=== PATIENT | female | born 1975 | race American Indian/Alaskan Native ===

== ENCOUNTER 2017-01-17 08:26 | Emergency (ER) | payer MEDICAID ==
[2017-01-17 10:57] LABS: Bacteria,Urine 1+ /HPF (Negative); Mucus,Urine 3+ /HPF
[2017-01-17 11:00] LABS: Bilirubin,Urine Moderate (Negative); Ketones,Urine Trace mg/dL (Negative)
[2017-01-17 11:01] LABS: Blood,Urine Large (Negative)
[2017-01-17 11:02] LABS: Leukocyte Esterase,Urine Large (Negative); Nitrite,Urine Negative (Negative)
[2017-01-17 11:05] LABS: RBC,Urine > 182.0 /HPF (0.0-6.0)
[2017-01-17 11:36] VITALS: BP 140/96
--- NOTE | 2017-01-17 16:12 | Emergency Department Report ---
Entered by CLAUDIA SULTANA, acting as scribe for FAROOQ RODRIGUEZ PA. ED Female HPI - General Chief complaint: Urogenital-Female Stated complaint: BUMPS VAG AREA Time Seen by Provider: 01/17/17 10:11 Source: patient Mode of arrival: Ambulatory Limitations: No Limitations - History of Present Illness Initial comments: 41 year old female with no significant PMHx presents to ED with c/o lesions outside the vaginal area since 3 days ago. Patient reports she had dysuria and noticed lesions after urinating and describes pain as burning. She notes she had a new sexual partner and had unprotected sex with that partner. Patient denies similar symptoms, vaginal bleeding, vaginal discharge, fever, back pain, abd pain, chills, nausea, or vomiting. Patient used joan butter with no relief. Patient is currently on her menstrual period. NKDA. PAZ Complaint: other (lesions near vaginal area) -: days(s) (3) Severity: moderate Severity scale (0 -10): 4 Quality: burning Consistency: constant Improves with: none Worsens with: urination Are you Now?: No Associated Symptoms: denies other symptoms, dysuria. denies: vaginal discharge , vaginal bleeding, abdominal pain, nausea/vomiting, fever/chills, headaches, hematuria, rash, shortness of breath, weakness - Related Data Sexually active: Yes Previous Rx's Medication Instructions Recorded Last Taken Type Acyclovir [Zovirax] 1 applic TP BID #1 tube 01/17/17 Unknown Rx Sulfamethoxazole/Trimethoprim 1 each PO BID #12 tablet 01/17/17 Unknown Rx [Bactrim DS TAB] valACYclovir [Valtrex] 500 mg PO BID #30 tab 01/17/17 Unknown Rx Allergies Allergy/AdvReac Type Severity Reaction Status Date / Time No Known Allergies Allergy Verified 01/17/17 09:04 ED Review of Systems Comment: All other systems reviewed and negative Constitutional: denies: chills, fever, weakness Respiratory: denies: cough, shortness of breath, wheezing Cardiovascular: denies: chest pain, palpitations Gastrointestinal: denies: abdominal pain, nausea, vomiting, diarrhea Genitourinary: dysuria. denies: urgency, frequency, hematuria, discharge Musculoskeletal: denies: back pain, joint swelling, arthralgia Skin: lesions (outside vaginal area). denies: rash Neurological: denies: headache, weakness, paresthesias ED Past Medical Hx - Past Medical History Additional medical history: OBESITY - Surgical History Additional Surgical History: X 3 - Social History Smoking Status: Former Smoker Substance Use Type: None - Medications Home Medications: Home Medications Medication Instructions Recorded Confirmed Last Taken Type Acyclovir [Zovirax] 1 applic TP BID #1 tube 01/17/17 Unknown Rx Sulfamethoxazole/Trimethoprim 1 each PO BID #12 tablet 01/17/17 Unknown Rx [Bactrim DS TAB] valACYclovir [Valtrex] 500 mg PO BID #30 tab 01/17/17 Unknown Rx ED Physical Exam - General Limitations: No Limitations - Other Other exam information: GENERAL: Patient is alert and oriented x 3. No apparent distress, normal gait, atraumatic. HEAD: Head is normocephalic and atraumatic. ABDOMEN: Nontender to palpation on all quadrants. No organomegaly was noted. Positive bowel sounds. No CVA tenderness. BACK: normal inspection, full ROM. No CVA tenderness, no paraspinal tenderness, no vertebral tenderness LUNGS: Symmetrical with respiration, no wheezing, no rales, no crackles, CTAB HEART: Regular rate and rhythm with normal S1/S2 present. No murmurs, rubs, or gallops. SKIN: Warm and dry. No lesions, ulceration or induration present GENITOURINARY: 4 ulcerated lesions, on labia minora consistent with genital herpes outbreak. Lesions tender to touch ED Course Vital Signs 01/17/17 01/17/17 09:04 11:34 Temperature 98.1 F 98.4 F Pulse Rate 65 85 Respiratory 17 16 Rate Blood Pressure 136/85 Blood Pressure 140/96 [Left] O2 Sat by Pulse 100 100 Oximetry ED Medical Decision Making - Medical Decision Making 41 year old female presents to ED with genital herpes outbreak ED course: test and UA were ordered in ED. Urinalysis positive for bacteria and elevated white blood cell Vital signs stable patient is in no acute or respiratory distress. Discussed findings with patient about diagnosis. Discussed with patient to follow up with PCP as referred, and to return to the ED if symptoms return or worsen. Patient states understanding and will follow instructions. Pt verbally states understanding and will comply to follow up. ED Disposition Clinical Impression: Genital herpes Qualifiers: Herpes simplex infection site: vulvovaginitis Qualified Code(s): A60.04 - Herpesviral vulvovaginitis UTI (urinary tract infection) Qualifiers: Urinary tract infection type: acute cystitis Hematuria presence: with hematuria Qualified Code(s): N30.01 - Acute cystitis with hematuria Disposition: TO HOME OR SELFCARE Is pt being admited?: No Does the pt Need Aspirin: No Condition: Stable Instructions: Genital Herpes Simplex (ED), Urinary Tract Infection in Women (ED ), Sexually Transmitted Diseases in Adolescents (ED) Prescriptions: Acyclovir [Zovirax] 1 applic TP BID #1 tube Sulfamethoxazole/Trimethoprim [Bactrim DS TAB] 1 each PO BID #12 tablet valACYclovir [Valtrex] 500 mg PO BID #30 tab Referrals: PRIMARY CARE,MD [Primary Care Provider] - 3-5 Days [facility] [Outside] - 3-5 Days [facility] [Outside] - 3-5 Days Forms: Work/School Release Form(ED) Time of Disposition: 11:23 This documentation as recorded by the KAYY dominguez PEARL,accurately reflects the service I personally performed and the decisions made by MICHAEL barragan OYINLOLA A PA.
== END 2017-01-17 11:35 | disposition home or self-care (01) ==
LOC: ED 08:26
DX: A60.04 Herpesviral vulvovaginitis (principal); N30.01 Acute cystitis with hematuria; E66.9 Obesity, unspecified; Z87.891 Personal history of nicotine dependence
CPT/HCPCS: 81001; 81025; 82962; 99283

== ENCOUNTER 2017-03-13 09:18 | Emergency (ER) | payer MEDICAID ==
[2017-03-13 09:23] VITALS: BP 113/71
[2017-03-13 09:56] LABS: Basophils % (Auto) 0.4 % (0.0-1.8); Eosinophils % (Auto) 0.1 % (0.0-4.3); Hemoglobin 11.7 gm/dl (10.1-14.3); Mean Corpuscular HGB Conc 32 % (30-34); Mean Corpuscular Volume 82 fl (79-97); Platelet Count 125 K/mm3 (140-440); Red Blood Count 4.52 M/mm3 (3.65-5.03); Red Cell Distribution Width 17.4 % (13.2-15.2); White Blood Count 4.4 K/mm3 (4.5-11.0)
[2017-03-13 10:02] LABS: Mean Corpuscular Hemoglobin 26 pg (28-32)
[2017-03-13 10:15] LABS: Alanine Aminotransferase 17 units/L (7-56); Albumin/Globulin Ratio 1.2 %; Alkaline Phosphatase 56 units/L (35-129); Anion Gap 16 mmol/L; BUN/Creatinine Ratio 6; Blood Urea Nitrogen 6 mg/dL (7-17); Calcium 8.9 mg/dL (8.4-10.2); Carbon Dioxide 23 mmol/L (22-30); Chloride 104.6 mmol/L (98-107); Glucose 99 mg/dL (65-100); Lipase 53 units/L (13-60); Potassium 3.8 mmol/L (3.6-5.0); Sodium 140 mmol/L (137-145); Total Protein 7.3 g/dL (6.3-8.2)
[2017-03-13 10:33] LABS: Bacteria,Urine 1+ /HPF (Negative); Bilirubin,Urine NEG (Negative); Blood,Urine SM (Negative); Ketones,Urine NEG (Negative); Leukocyte Esterase,Urine NEG (Negative); Mucus,Urine 2+ /HPF; Nitrite,Urine NEG (Negative); Urobilinogen,Urine < 2.0 mg/dL (<2.0)
== END 2017-03-13 20:45 | disposition left against medical advice (07) ==
LOC: ED 09:18
DX: R10.9 Unspecified abdominal pain (principal); Z53.21 Procedure and treatment not carried out due to patient leaving prior to being seen by health care provider
CPT/HCPCS: 36415; 80053; 81001; 83690; 85025

== ENCOUNTER 2017-12-12 16:15 | Emergency (ER) | payer MEDICAID ==
[2017-12-12 17:22] LABS: Basophils % (Auto) 0.2 % (0.0-1.8); Eosinophils # (Auto) 0.1 K/mm3 (0.0-0.4); Eosinophils % (Auto) 1.1 % (0.0-4.3); Lymphocytes # (Auto) 1.3 K/mm3 (1.2-5.4); Lymphocytes % (Auto) 23.2 % (13.4-35.0); Mean Corpuscular HGB Conc 32 % (30-34); Mean Corpuscular Volume 79 fl (79-97); Monocytes # (Auto) 0.4 K/mm3 (0.0-0.8); Monocytes % (Auto) 6.6 % (0.0-7.3); Platelet Count 134 K/mm3 (140-440); Red Blood Count 4.42 M/mm3 (3.65-5.03); Red Cell Distribution Width 19.1 % (13.2-15.2)
[2017-12-12 17:23] LABS: Mean Corpuscular Hemoglobin 25 pg (28-32)
[2017-12-12 17:39] LABS: Alanine Aminotransferase 9 units/L (7-56); Albumin 4.2 g/dL (3.9-5); BUN/Creatinine Ratio 11; Blood Urea Nitrogen 10 mg/dL (7-17); Calcium 10.1 mg/dL (8.4-10.2); Hemolysis Index 3
[2017-12-12 17:50] LABS: Partial Thromboplastin Time 24.1 Sec. (24.2-36.6)
[2017-12-12] MEDS ORDERED: LOVENOX SUB-Q ONE (22:16)
[2017-12-12] MEDS ORDERED: TYLENOL PO ONE (22:16)
--- NOTE | 2017-12-12 22:17 | Emergency Department Report ---
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 Presents to the ER with nontraumatic left medial thigh pain which is sharp and achy in nature, does not radiate anywhere, and decreases with rest, and increases with palpation and range of motion. No chest pain, no shortness of breath, no abdominal pain, no hematemesis, no bright red blood per rectum. Reports this pain feels similar to prior episodes of DVT. -: Gradual Location: left, lower extremity Radiation: non-radiation Quality: aching Consistency: intermittent Improves with: rest Worsens with: movement Associated Symptoms: denies other symptoms - Related Data Previous Rx's Medication Instructions Recorded Last Taken Type Acyclovir [Zovirax] 1 applic TP BID #1 tube 01/17/17 Unknown Rx Sulfamethoxazole/Trimethoprim 1 each PO BID #12 tablet 01/17/17 Unknown Rx [Bactrim DS TAB] valACYclovir [Valtrex] 500 mg PO BID #30 tab 01/17/17 Unknown Rx Allergies Allergy/AdvReac Type Severity Reaction Status Date / Time No Known Allergies Allergy Verified 01/17/17 09:04 ED Review of Systems ROS: Stated complaint: LEFT LEG PAIN Other details as noted in HPI Comment: All other systems reviewed and negative Musculoskeletal: myalgia ED Past Medical Hx - Past Medical History Additional medical history: OBESITY - Surgical History Additional Surgical History: X 3 - Social History Smoking Status: Never Smoker Substance Use Type: None - Medications Home Medications: Home Medications Medication Instructions Recorded Confirmed Last Taken Type Acyclovir [Zovirax] 1 applic TP BID #1 tube 01/17/17 Unknown Rx Sulfamethoxazole/Trimethoprim 1 each PO BID #12 tablet 01/17/17 Unknown Rx [Bactrim DS TAB] valACYclovir [Valtrex] 500 mg PO BID #30 tab 01/17/17 Unknown Rx ED Physical Exam - General Limitations: No Limitations General appearance: alert, in no apparent distress - Head Head exam: Present: atraumatic, normocephalic - Eye Eye exam: Present: normal appearance, EOMI. Absent: nystagmus, other - ENT ENT exam: Present: normal exam, normal orophraynx, mucous membranes moist, normal external ear exam - Neck Neck exam: Present: normal inspection, full ROM - Respiratory Respiratory exam: Present: normal lung sounds bilaterally. Absent: respiratory distress - Cardiovascular Cardiovascular Exam: Present: regular rate, normal rhythm, normal heart sounds. Absent: bradycardia, tachycardia, irregular rhythm, systolic murmur, diastolic murmur, rubs, gallop - GI/Abdominal GI/Abdominal exam: Present: soft, normal bowel sounds. Absent: distended, tenderness, guarding, rebound, rigid, pulsatile mass - Extremities Exam Extremities exam: Present: normal inspection, full ROM, tenderness (there is medial thigh tenderness. Compartments soft. 2+ pulses noted in the upper, lower extremities. No palpable cord. Negative Homans sign.), normal capillary refill. Absent: pedal edema, joint swelling, calf tenderness - Back Exam Back exam: Present: normal inspection, full ROM. Absent: tenderness, CVA tenderness (R), paraspinal tenderness, vertebral tenderness - Neurological Exam Neurological exam: Present: alert, oriented X3, CN II-XII intact, normal gait, other (Extraocular movements intact. Tongue midline. No facial droop. Facial sensation intact to light touch in the V1, V2, V3 distribution bilaterally. 5 and 5 strength in 4 extremities.. Sensation is intact to light touch in 4 extremities.). Absent: motor sensory deficit - Psychiatric Psychiatric exam: Present: normal affect, normal mood - Skin Skin exam: Present: warm, dry, intact, normal color. Absent: rash ED Course Vital Signs 12/12/17 16:46 Temperature 98.3 F Pulse Rate 75 Respiratory 14 Rate Blood Pressure 108/66 O2 Sat by Pulse 100 Oximetry ED Medical Decision Making - Lab Data Result diagrams: 12/12/17 17:00 12/12/17 17:00 Vital Signs 12/12/17 16:46 Temperature 98.3 F Pulse Rate 75 Respiratory 14 Rate Blood Pressure 108/66 O2 Sat by Pulse 100 Oximetry Lab Results 12/12/17 12/12/17 12/12/17 Range/Units 17:00 17:00 17:00 WBC 5.8 (4.5-11.0) K/mm3 RBC 4.42 (3.65-5.03) M/mm3 Hgb 11.0 (10.1-14.3) gm/dl Hct 35.0 (30.3-42.9) % MCV 79 (79-97) fl MCH 25 L (28-32) pg MCHC 32 (30-34) % RDW 19.1 H (13.2-15.2) % Plt Count 134 L (140-440) K/mm3 Lymph % (Auto) 23.2 (13.4-35.0) % Chester % (Auto) 6.6 (0.0-7.3) % Eos % (Auto) 1.1 (0.0-4.3) % Baso % (Auto) 0.2 (0.0-1.8) % Lymph # 1.3 (1.2-5.4) K/mm3 Chester # 0.4 (0.0-0.8) K/mm3 Eos # 0.1 (0.0-0.4) K/mm3 Baso # 0.0 (0.0-0.1) K/mm3 Seg Neutrophils % 68.9 (40.0-70.0) % Seg Neutrophils # 4.0 (1.8-7.7) K/mm3 PT 13.7 (12.2-14.9) Sec. INR 1.00 (0.87-1.13) APTT 24.1 L (24.2-36.6) Sec. Sodium 138 (137-145) mmol/L Potassium 3.8 (3.6-5.0) mmol/L Chloride 102.2 (98-107) mmol/L Carbon Dioxide 23 (22-30) mmol/L Anion Gap 17 mmol/L BUN 10 (7-17) mg/dL Creatinine 0.9 (0.7-1.2) mg/dL Estimated GFR > 60 ml/min BUN/Creatinine Ratio 11 % Glucose 85 (65-100) mg/dL Calcium 10.1 (8.4-10.2) mg/dL Total Bilirubin 0.70 (0.1-1.2) mg/dL AST 14 (5-40) units/L ALT 9 (7-56) units/L Alkaline Phosphatase 63 (35-129) units/L Total Protein 7.6 (6.3-8.2) g/dL Albumin 4.2 (3.9-5) g/dL Albumin/Globulin Ratio 1.2 % - Radiology Data Radiology results: pending - Medical Decision Making Differential diagnosis, including but not limited to: Muscular sprain, muscular strain, Liu's cyst, superficial thrombophlebitis, DVT Assessment and plan: 43-year-old female with left medial thigh pain (during leg examination I'm chaperoned by nurse Denice Mcmillan) with no redness, pus or streaking. Reports recent immobility and a car. No contraindications to Lovenox. Patient will be loaded with Lovenox and an outpatient DVT study will be ordered as the patient presented after hours and after vascular lab has closed. The importance of following up tomorrow morning for her ultrasound have been emphasized to the patient and she is reliable to follow up. Critical care attestation.: If time is entered above; I have spent that time in minutes in the direct care of this critically ill patient, excluding procedure time. ED Disposition Clinical Impression: Left leg pain Disposition: DC-01 TO HOME OR SELFCARE Is pt being admited?: No Does the pt Need Aspirin: No Condition: Good Instructions: Deep Venous Thrombosis (ED), Arthralgia (ED) Additional Instructions: Please contact the ultrasound department in the morning at [phone]; make certain to bring requisition form with you for the ultrasound of the legs. Take acetaminophen [id number] as needed for pain. Return to the ER right away with new pain, worsened pain, migration of pain, fevers, chills, lethargy, irritability, projectile vomiting, change in mental status, confusion, inability to tolerate liquid feeds, inability to walk. Referrals: PRIMARY CARE, [Primary Care Provider] - 3-5 Days
[2017-12-13 00:23] VITALS: BP 112/64
== END 2017-12-13 00:25 | disposition home or self-care (01) ==
LOC: ED 16:15
DX: M79.652 Pain in left thigh (principal); E66.9 Obesity, unspecified; Z86.718 Personal history of other venous thrombosis and embolism
CPT/HCPCS: 36415; 80053; 85025; 85610; 85730; 96372; 99283; J1650

== ENCOUNTER 2019-11-13 09:30 | Emergency (ER) | payer SELFPAY ==
[2019-11-13] MEDS ORDERED: ASPIRIN 325 MG TAB PO ONE (09:37)
[2019-11-13 10:02] VITALS: BP 125/82
--- NOTE | 2019-11-13 11:30 | Emergency Department Report ---
- General Chief complaint: Skin Rash Stated complaint: (R) FOOT SWOLLEN Time Seen by Provider: 11/13/19 10:49 Source: patient Mode of arrival: Wheelchair Limitations: No Limitations - History of Present Illness Initial comments: 44-year-old female with no reported past medical history was at home cleaning foot with a device when she scraped the sole of her foot which within 24 hours began to develop swelling, tenderness, redness and warmth. The symptoms began to pursue progress since the onset the point where it is difficult for her to ambulate due to the pain reports no fever chills or sweats no calf pain no numbness or tingling. She has not tried any [id number] palliative factors. Tetanus Up to Date: yes Quality: dull, constant Consistency: constant Worsens with: palpation, movement Associated symptoms: denies other symptoms Treatments Prior to Arrival: none - Related Data Previous Rx's Medication Instructions Recorded Last Taken Type Acyclovir [Zovirax] 1 applic TP BID #1 tube 01/17/17 Unknown Rx Sulfamethoxazole/Trimethoprim 1 each PO BID #12 tablet 01/17/17 Unknown Rx [Bactrim DS TAB] valACYclovir [Valtrex] 500 mg PO BID #30 tab 01/17/17 Unknown Rx Ketorolac [Toradol] 10 mg PO Q6H PRN #15 tablet 11/13/19 Unknown Rx Sulfamethoxazole/Trimethoprim 1 each PO BID #20 tablet 11/13/19 Unknown Rx [Bactrim Ds] cephALEXin [Keflex] 500 mg PO Q6HR #40 capsule 11/13/19 Unknown Rx Allergies Allergy/AdvReac Type Severity Reaction Status Date / Time No Known Allergies Allergy Verified 01/17/17 09:04 Abscess Boil HPI - HPI Chief Complaint: Skin Rash Stated Complaint: (R) FOOT SWOLLEN Time Seen by Provider: 11/13/19 10:49 Home Medications: Previous Rx's Medication Instructions Recorded Last Taken Type Acyclovir [Zovirax] 1 applic TP BID #1 tube 01/17/17 Unknown Rx Sulfamethoxazole/Trimethoprim 1 each PO BID #12 tablet 01/17/17 Unknown Rx [Bactrim DS TAB] valACYclovir [Valtrex] 500 mg PO BID #30 tab 01/17/17 Unknown Rx Ketorolac [Toradol] 10 mg PO Q6H PRN #15 tablet 11/13/19 Unknown Rx Sulfamethoxazole/Trimethoprim 1 each PO BID #20 tablet 11/13/19 Unknown Rx [Bactrim Ds] cephALEXin [Keflex] 500 mg PO Q6HR #40 capsule 11/13/19 Unknown Rx Allergies/Adverse Reactions: Allergies Allergy/AdvReac Type Severity Reaction Status Date / Time No Known Allergies Allergy Verified 01/17/17 09:04 ED Review of Systems ROS: Stated complaint: (R) FOOT SWOLLEN Other details as noted in HPI Comment: All other systems reviewed and negative ED Past Medical Hx - Past Medical History Previous Medical History?: Yes Additional medical history: OBESITY - Surgical History Past Surgical History?: Yes Additional Surgical History: X 3 - Social History Smoking Status: Never Smoker Substance Use Type: None - Medications Home Medications: Home Medications Medication Instructions Recorded Confirmed Last Taken Type Acyclovir [Zovirax] 1 applic TP BID #1 tube 01/17/17 Unknown Rx Sulfamethoxazole/Trimethoprim 1 each PO BID #12 tablet 01/17/17 Unknown Rx [Bactrim DS TAB] valACYclovir [Valtrex] 500 mg PO BID #30 tab 01/17/17 Unknown Rx Ketorolac [Toradol] 10 mg PO Q6H PRN #15 tablet 11/13/19 Unknown Rx Sulfamethoxazole/Trimethoprim 1 each PO BID #20 tablet 11/13/19 Unknown Rx [Bactrim Ds] cephALEXin [Keflex] 500 mg PO Q6HR #40 capsule 11/13/19 Unknown Rx ED Physical Exam - General Limitations: No Limitations General appearance: alert, in no apparent distress - Head Head exam: Present: atraumatic, normocephalic - Eye Eye exam: Present: normal appearance - ENT ENT exam: Present: mucous membranes moist - Neck Neck exam: Present: normal inspection - Respiratory Respiratory exam: Present: normal lung sounds bilaterally. Absent: respiratory distress - Cardiovascular Cardiovascular Exam: Present: regular rate, normal rhythm. Absent: systolic murmur, diastolic murmur, rubs, gallop - GI/Abdominal GI/Abdominal exam: Present: soft, normal bowel sounds - Extremities Exam Extremities exam: Present: tenderness - Expanded Lower Extremity Exam Right Foot/Toe exam: Present: tenderness, swelling, erythema. Absent: deformity, crepidus, tenderness at base of 5th metatarsal, nail avulsion, subungual hematoma Neuro vascular tendon exam: Present: no vascular compromise 1 - Scraping cellulitis region - Back Exam Back exam: Present: normal inspection - Neurological Exam Neurological exam: Present: alert, oriented X3 - Psychiatric Psychiatric exam: Present: normal affect, normal mood - Skin Skin exam: Present: warm, dry, intact, erythema (Swelling and tenderness to right foot involving the plantar surface in the medial aspect). Absent: rash ED Course Vital Signs 11/13/19 09:51 Temperature 97.7 F Pulse Rate 69 Respiratory 20 Rate Blood Pressure 125/82 O2 Sat by Pulse 100 Oximetry Critical care attestation.: If time is entered above; I have spent that time in minutes in the direct care of this critically ill patient, excluding procedure time. ED Disposition Clinical Impression: Cellulitis of foot Disposition: DC-01 TO HOME OR SELFCARE Is pt being admited?: No Does the pt Need Aspirin: No Condition: Stable Instructions: Cellulitis (ED) Prescriptions: Sulfamethoxazole/Trimethoprim [Bactrim Ds] 1 each PO BID #20 tablet cephALEXin [Keflex] 500 mg PO Q6HR #40 capsule Ketorolac [Toradol] 10 mg PO Q6H PRN #15 tablet PRN Reason: Pain Referrals: PRIMARY CARE, [Primary Care Provider] - 3-5 Days [facility] [Provider Group] - 2-3 Days
== END 2019-11-13 11:28 | disposition home or self-care (01) ==
LOC: ED 09:30
DX: L03.115 Cellulitis of right lower limb (principal); E66.9 Obesity, unspecified; Z68.37 Body mass index [BMI] 37.0-37.9, adult; Z98.890 Other specified postprocedural states; Z79.899 Other long term (current) drug therapy
CPT/HCPCS: 82962; 93005

== ENCOUNTER 2020-01-24 16:23 | Emergency (ER) | payer SELFPAY ==
[2020-01-24 16:41] VITALS: BP 127/78
--- NOTE | 2020-01-24 17:58 | Emergency Department Report ---
- General Chief complaint: Skin Rash Stated complaint: BUG BITE Time Seen by Provider: 01/24/20 17:55 Source: patient Mode of arrival: Ambulatory Limitations: No Limitations - History of Present Illness Initial comments: This is a 44-year-old female nontoxic well in appearance with no signs of distress presents to the ED with complaint of left back area redness and pain. Stated is not sure what bite her. Patient denies any swelling, pus, or drainage. Patient denies any other symptoms. Denies any fever, chills, headache, nausea, vomiting, chest pain or SOB. Denies any other complaints. MD complaint: insect bite/sting -: days(s) Location: back Severity: mild Severity scale (0 -10): 8 Quality: aching Consistency: constant Improves with: none Worsens with: none Associated symptoms: denies other symptoms - Related Data Previous Rx's Medication Instructions Recorded Last Taken Type Acyclovir [Zovirax] 1 applic TP BID #1 tube 01/17/17 Unknown Rx Sulfamethoxazole/Trimethoprim 1 each PO BID #12 tablet 01/17/17 Unknown Rx [Bactrim DS TAB] valACYclovir [Valtrex] 500 mg PO BID #30 tab 01/17/17 Unknown Rx Ketorolac [Toradol] 10 mg PO Q6H PRN #15 tablet 11/13/19 Unknown Rx Sulfamethoxazole/Trimethoprim 1 each PO BID #20 tablet 11/13/19 Unknown Rx [Bactrim Ds] cephALEXin [Keflex] 500 mg PO Q6HR #40 capsule 11/13/19 Unknown Rx Clindamycin [Clindamycin CAP] 300 mg PO Q6H #28 capsule 01/24/20 Unknown Rx Allergies Allergy/AdvReac Type Severity Reaction Status Date / Time No Known Allergies Allergy Verified 01/17/17 09:04 Abscess Boil HPI - HPI Chief Complaint: Skin Rash Stated Complaint: BUG BITE Time Seen by Provider: 01/24/20 17:55 Home Medications: Previous Rx's Medication Instructions Recorded Last Taken Type Acyclovir [Zovirax] 1 applic TP BID #1 tube 01/17/17 Unknown Rx Sulfamethoxazole/Trimethoprim 1 each PO BID #12 tablet 01/17/17 Unknown Rx [Bactrim DS TAB] valACYclovir [Valtrex] 500 mg PO BID #30 tab 01/17/17 Unknown Rx Ketorolac [Toradol] 10 mg PO Q6H PRN #15 tablet 11/13/19 Unknown Rx Sulfamethoxazole/Trimethoprim 1 each PO BID #20 tablet 11/13/19 Unknown Rx [Bactrim Ds] cephALEXin [Keflex] 500 mg PO Q6HR #40 capsule 11/13/19 Unknown Rx Clindamycin [Clindamycin CAP] 300 mg PO Q6H #28 capsule 01/24/20 Unknown Rx Allergies/Adverse Reactions: Allergies Allergy/AdvReac Type Severity Reaction Status Date / Time No Known Allergies Allergy Verified 01/17/17 09:04 ED Review of Systems ROS: Stated complaint: BUG BITE Other details as noted in HPI Constitutional: denies: chills, fever Eyes: denies: eye pain, eye discharge, vision change ENT: denies: ear pain, throat pain Respiratory: denies: cough, shortness of breath, wheezing Cardiovascular: denies: chest pain, palpitations Endocrine: no symptoms reported Gastrointestinal: denies: abdominal pain, nausea, diarrhea Genitourinary: denies: urgency, dysuria, discharge Musculoskeletal: denies: back pain, joint swelling, arthralgia Skin: denies: rash, lesions Neurological: denies: headache, weakness, paresthesias Psychiatric: denies: anxiety, depression Hematological/Lymphatic: denies: easy bleeding, easy bruising ED Past Medical Hx - Past Medical History Previous Medical History?: No Additional medical history: OBESITY - Surgical History Past Surgical History?: Yes Additional Surgical History: X 3 - Social History Smoking Status: Never Smoker Substance Use Type: None - Medications Home Medications: Home Medications Medication Instructions Recorded Confirmed Last Taken Type Acyclovir [Zovirax] 1 applic TP BID #1 tube 01/17/17 Unknown Rx Sulfamethoxazole/Trimethoprim 1 each PO BID #12 tablet 01/17/17 Unknown Rx [Bactrim DS TAB] valACYclovir [Valtrex] 500 mg PO BID #30 tab 01/17/17 Unknown Rx Ketorolac [Toradol] 10 mg PO Q6H PRN #15 tablet 11/13/19 Unknown Rx Sulfamethoxazole/Trimethoprim 1 each PO BID #20 tablet 11/13/19 Unknown Rx [Bactrim Ds] cephALEXin [Keflex] 500 mg PO Q6HR #40 capsule 11/13/19 Unknown Rx Clindamycin [Clindamycin CAP] 300 mg PO Q6H #28 capsule 01/24/20 Unknown Rx ED Physical Exam - General Limitations: No Limitations General appearance: alert, in no apparent distress - Head Head exam: Present: atraumatic, normocephalic - Eye Eye exam: Present: normal appearance - Neck Neck exam: Present: normal inspection, full ROM. Absent: tenderness, meningismus, lymphadenopathy - Respiratory Respiratory exam: Present: normal lung sounds bilaterally. Absent: respiratory distress, wheezes, rales, rhonchi, stridor, chest wall tenderness, accessory muscle use, decreased breath sounds, prolonged expiratory - Cardiovascular Cardiovascular Exam: Present: regular rate, normal rhythm, normal heart sounds. Absent: bradycardia, tachycardia, irregular rhythm, systolic murmur, diastolic murmur, rubs, gallop - Extremities Exam Extremities exam: Present: normal inspection, full ROM - Back Exam Back exam: Present: normal inspection, full ROM. Absent: tenderness, CVA tenderness (R), CVA tenderness (L), muscle spasm, paraspinal tenderness, ve rtebral tenderness, rash noted - Expanded Back Exam Expanded 1 - 2 cm x 2 cm cellulitis. no swelling. redness. tender to touch. no abscess. - Neurological Exam Neurological exam: Present: alert, oriented X3, normal gait - Psychiatric Psychiatric exam: Present: normal affect, normal mood - Skin Skin exam: Present: warm, dry, intact, normal color. Absent: rash ED Course Vital Signs 01/24/20 16:40 Temperature 98.2 F Pulse Rate 79 Respiratory 16 Rate Blood Pressure 127/78 [Right] O2 Sat by Pulse 99 Oximetry - Reevaluation(s) Reevaluation #1: 01/24/20 17:57 Patient is speaking in full sentenecs with no signs of disress noted. ED Medical Decision Making - Medical Decision Making This is a 33-year-old female that presents with cellulitis. Patient is stable and was examined by me. The area of redness and cellulitis has been outlined with a permanent marker. Patient will be discharged with Clinda. Patient was instructed to Follow-up with a primary care doctor in 3-5 days or if symptoms worsen and continue return to emergency room as soon as possible. At time of discharge, the patient does not seem toxic or ill in appearance. No acute signs of distress noted. Patient agrees to discharge treatment plan of care. No further questions noted by the patient. Critical care attestation.: If time is entered above; I have spent that time in minutes in the direct care of this critically ill patient, excluding procedure time. ED Disposition Clinical Impression: Cellulitis Qualifiers: Site of cellulitis: other site Qualified Code(s): L03.818 - Cellulitis of other sites Disposition: DC- TO HOME OR SELFCARE Is pt being admited?: No Does the pt Need Aspirin: No Condition: Stable Instructions: Cellulitis (ED) Additional Instructions: Follow-up with a primary care doctor in 3-5 days or if symptoms worsen and continue return to emergency room as soon as possible. Prescriptions: Clindamycin [Clindamycin CAP] 300 mg PO Q6H #28 capsule Referrals: PRIMARY MD MISSY [Referring] - 3-5 Days HAZEL HURST MD [Staff Physician] - 3-5 Days
== END 2020-01-24 18:17 | disposition home or self-care (01) ==
LOC: ED 16:23
DX: L03.90 Cellulitis, unspecified (principal); E66.9 Obesity, unspecified; Z68.33 Body mass index [BMI] 33.0-33.9, adult; Z98.890 Other specified postprocedural states; Z79.899 Other long term (current) drug therapy
CPT/HCPCS: 99282

== ENCOUNTER 2021-05-02 07:21 | Emergency (ER) | payer OTHER ==
[2021-05-02 07:26] VITALS: BP 130/57
--- NOTE | 2021-05-02 07:44 | Emergency Department Report ---
ED Rash HPI - HPI Chief Complaint: Skin Rash Stated Complaint: INSECT BITE Time Seen by Provider: 05/02/21 07:29 Duration: 2 Days Location: Back Suspected Cause: Unknown Rash Symptoms: Yes Itching, No Facial Swelling, No Tongue/Oral Swelling, No Breathing Difficulties, No Choking Sensation, No Wheezing/Dyspnea, No Peeling, No Blistering, No Fever, No Lightheaded, No Malaise, No Myalgias Severity: mild Other History: This is a 45-year-old female nontoxic, well nourished in appearance, no acute signs of distress presents to the ED with c/o of multiple small "instect" bites to the back. Patient stated has some itching and that started 2 days ago. Denies any redness. Patient denies any drooling, hoarseness or facial swelling. Patient denies any trauma. She denies any fever, chills, nausea, vomiting, chest pain, shortness of breath, headache, stiff neck, numbness or tingling. Patient deneis any allergies. ED Review of Systems ROS: Stated complaint: INSECT BITE Other details as noted in HPI Comment: All other systems reviewed and negative Constitutional: denies: chills, fever Eyes: denies: eye pain, eye discharge, vision change ENT: denies: ear pain, throat pain Respiratory: denies: cough, shortness of breath, wheezing Cardiovascular: denies: chest pain, palpitations Endocrine: no symptoms reported Gastrointestinal: denies: abdominal pain, nausea, diarrhea Genitourinary: denies: urgency, dysuria, discharge Musculoskeletal: denies: back pain, joint swelling, arthralgia Skin: denies: rash, lesions Neurological: denies: headache, weakness, paresthesias Psychiatric: denies: anxiety, depression Hematological/Lymphatic: denies: easy bleeding, easy bruising ED Past Medical Hx - Past Medical History Additional medical history: OBESITY - Surgical History Additional Surgical History: X 3 - Social History Smoking Status: Never Smoker Substance Use Type: None - Medications Home Medications: Home Medications Medication Instructions Recorded Confirmed Last Taken Type Acyclovir [Zovirax] 1 applic TP BID #1 tube 01/17/17 Unknown Rx Sulfamethoxazole/Trimethoprim 1 each PO BID #12 tablet 01/17/17 Unknown Rx [Bactrim DS TAB] valACYclovir [Valtrex] 500 mg PO BID #30 tab 01/17/17 Unknown Rx Ketorolac [Toradol] 10 mg PO Q6H PRN #15 tablet 11/13/19 Unknown Rx Sulfamethoxazole/Trimethoprim 1 each PO BID #20 tablet 11/13/19 Unknown Rx [Bactrim Ds] cephALEXin [Keflex] 500 mg PO Q6HR #40 capsule 11/13/19 Unknown Rx Clindamycin [Clindamycin CAP] 300 mg PO Q6H #28 capsule 01/24/20 Unknown Rx Hydrocortisone [Hydrocortisone 1% 14.2 gm TP DAILY PRN 5 Days #1 tube 05/02/21 Unknown Rx CREAM] diphenhydrAMINE [Benadryl CAP] 25 mg PO Q8HR PRN #12 capsule 05/02/21 Unknown Rx Rash Exam - Exam General: Vital signs noted. No distress. Alert and acting appropriately. HEENT: No Periorbital Edema, No Conjuctival Injection, No Chemosis, No Perioral Edema, No Tongue Edema, No Uvular Edema, No Compromised Airway, No Drooling Lungs: Yes Good Air Exchange (Normal Breath Sounds), No Wheezes, No Ronchi, No Stridor, No Cough, No Labored Respirations, No Retractions, No Use of Accessory Muscles, No Other Abnormal Lung Sounds Heart: Yes Regular, No Murmur Skin: No Urticarial Rash, No Maculopapular Rash, No Morbilliform rash, No Bulla(e), No Excoriations, No Weeping, No Tenderness, No Erythema, No Edema, No Encrustations, No Other Other: Positive: Abdomen Normal, Neurologic Normal, Musculoskeletal Normal ED Course Vital Signs 05/02/21 07:25 Temperature 98.7 F Pulse Rate 59 L Respiratory 16 Rate Blood Pressure 130/57 [Left] O2 Sat by Pulse 100 Oximetry - Reevaluation(s) Reevaluation #1: 05/02/21 07:44 Patient is speaking in full sentences with no signs of distress noted. ED Medical Decision Making - Medical Decision Making This is a 45 year-old female that presents with allergic reaction to unknown cause. Patient is stable was examined by me. There is no facial swelling. No angioedema. There is no cellulitis. No hoarseness. Patient be discharged with Benadryl and cortisone cream patient was referred to Follow-up with a primary care doctor in 3-5 days or if symptoms worsen and continue return to emergency room as soon as possible. At time of discharge, the patient does not seem toxic or ill in appearance. No acute signs of distress noted. Patient agrees to discharge treatment plan of care. No further questions noted by the patient. Critical care attestation.: If time is entered above; I have spent that time in minutes in the direct care of this critically ill patient, excluding procedure time. ED Disposition Clinical Impression: Allergic reaction Qualifiers: Encounter type: initial encounter Qualified Code(s): T78.40XA - Allergy, unspecified, initial encounter Disposition: HOME / SELF CARE / HOMELESS Is pt being admited?: No Does the pt Need Aspirin: No Condition: Stable Additional Instructions: Follow-up with a primary care doctor in 3-5 days or if symptoms worsen and continue return to emergency room as soon as possible. Prescriptions: diphenhydrAMINE [Benadryl CAP] 25 mg PO Q8HR PRN #12 capsule PRN Reason: Itching Hydrocortisone [Hydrocortisone 1% CREAM] 14.2 gm TP DAILY PRN 5 Days #1 tube PRN Reason: Itching Referrals: PRIMARY CAREMD [Referring] - 3-5 Days HAZEL HURST MD [Staff Physician] - 3-5 Days Forms: Work/School Release Form(ED) Time of Disposition: 07:47
== END 2021-05-02 07:55 | disposition home or self-care (01) ==
LOC: ED 07:21
DX: T78.40XA Allergy, unspecified, initial encounter (principal); X58.XXXA Exposure to other specified factors, initial encounter
CPT/HCPCS: 99282

== ENCOUNTER 2021-06-24 07:35 | Emergency (ER) | payer OTHER ==
--- NOTE | 2021-06-24 09:13 | Emergency Department Report ---
ED Female HPI - General Chief complaint: Urogenital-Female Stated complaint: BLADDER INFECTION Time Seen by Provider: 06/24/21 08:21 Source: patient Mode of arrival: Ambulatory Limitations: No Limitations - History of Present Illness Initial comments: 46-year-old obese -[place] female presents to the emergency room complaining of dysuria since yesterday. She states there is a smell to her urine she denies any nausea vomiting no fever no chills no abdominal pain or pelvic pain. She reports her last menstrual period was 06/10/2021 she is 4 para 3. She states that she has had a history of this before. MD Complaint: dysuria Onset/Timin -: days(s) Severity scale (0 -10): 0 Are you Now?: No Last Menstrual Period: 06/10/21 EDC: 03/17/22 Associated Symptoms: dysuria - Related Data Sexually active: Yes : 4 Para: 3 Previous Rx's Medication Instructions Recorded Last Taken Type Acyclovir [Zovirax] 1 applic TP BID #1 tube 01/17/17 Unknown Rx Sulfamethoxazole/Trimethoprim 1 each PO BID #12 tablet 01/17/17 Unknown Rx [Bactrim DS TAB] valACYclovir [Valtrex] 500 mg PO BID #30 tab 01/17/17 Unknown Rx Ketorolac [Toradol] 10 mg PO Q6H PRN #15 tablet 11/13/19 Unknown Rx Sulfamethoxazole/Trimethoprim 1 each PO BID #20 tablet 11/13/19 Unknown Rx [Bactrim Ds] cephALEXin [Keflex] 500 mg PO Q6HR #40 capsule 11/13/19 Unknown Rx Clindamycin [Clindamycin CAP] 300 mg PO Q6H #28 capsule 01/24/20 Unknown Rx Hydrocortisone [Hydrocortisone 1% 14.2 gm TP DAILY PRN 5 Days #1 tube 05/02/21 Unknown Rx CREAM] diphenhydrAMINE [Benadryl CAP] 25 mg PO Q8HR PRN #12 capsule 05/02/21 Unknown Rx Amoxicillin/K Clav Tab [Augmentin 1 tab PO Q12HR 10 Days #20 tab 06/24/21 Unknown Rx 875 mg] Allergies Allergy/AdvReac Type Severity Reaction Status Date / Time No Known Allergies Allergy Verified 01/17/17 09:04 ED Review of Systems ROS: Stated complaint: BLADDER INFECTION Other details as noted in HPI Comment: All other systems reviewed and negative ED Past Medical Hx - Past Medical History Previous Medical History?: No Additional medical history: OBESITY - Surgical History Past Surgical History?: Yes Additional Surgical History: X 3 - Social History Smoking Status: Never Smoker Substance Use Type: None - Medications Home Medications: Home Medications Medication Instructions Recorded Confirmed Last Taken Type Acyclovir [Zovirax] 1 applic TP BID #1 tube 01/17/17 Unknown Rx Sulfamethoxazole/Trimethoprim 1 each PO BID #12 tablet 01/17/17 Unknown Rx [Bactrim DS TAB] valACYclovir [Valtrex] 500 mg PO BID #30 tab 01/17/17 Unknown Rx Ketorolac [Toradol] 10 mg PO Q6H PRN #15 tablet 11/13/19 Unknown Rx Sulfamethoxazole/Trimethoprim 1 each PO BID #20 tablet 11/13/19 Unknown Rx [Bactrim Ds] cephALEXin [Keflex] 500 mg PO Q6HR #40 capsule 11/13/19 Unknown Rx Clindamycin [Clindamycin CAP] 300 mg PO Q6H #28 capsule 01/24/20 Unknown Rx Hydrocortisone [Hydrocortisone 1% 14.2 gm TP DAILY PRN 5 Days #1 tube 05/02/21 Unknown Rx CREAM] diphenhydrAMINE [Benadryl CAP] 25 mg PO Q8HR PRN #12 capsule 05/02/21 Unknown Rx Amoxicillin/K Clav Tab [Augmentin 1 tab PO Q12HR 10 Days #20 tab 06/24/21 Unknown Rx 875 mg] ED Physical Exam - General Limitations: No Limitations General appearance: alert, in no apparent distress - Head Head exam: Present: atraumatic, normocephalic - Eye Eye exam: Present: normal appearance - ENT ENT exam: Present: normal external ear exam - Neck Neck exam: Present: normal inspection, full ROM - Respiratory Respiratory exam: Present: normal lung sounds bilaterally. Absent: respiratory distress, accessory muscle use - Cardiovascular Cardiovascular Exam: Present: regular rate, normal rhythm - GI/Abdominal GI/Abdominal exam: Present: soft, normal bowel sounds. Absent: distended, tenderness, guarding - Extremities Exam Extremities exam: Present: normal inspection - Back Exam Back exam: Present: normal inspection - Neurological Exam Neurological exam: Present: alert, oriented X3, normal gait - Psychiatric Psychiatric exam: Present: normal affect, normal mood - Skin Skin exam: Present: warm, dry, intact, normal color. Absent: rash ED Course Vital Signs 06/24/21 08:04 Temperature 98.4 F Pulse Rate 68 Respiratory 16 Rate Blood Pressure 124/74 [Right] O2 Sat by Pulse 100 Oximetry ED Medical Decision Making - Lab Data Lab Results 06/24/21 Range/Units 08:38 Urine Color Yellow (Yellow) Urine Turbidity Cloudy (Clear) Urine pH 8.0 H (5.0-7.0) Ur Specific [place] 1.012 (1.003-1.030) Urine Protein 30 mg/dl (Negative) mg/dL Urine Glucose (UA) Neg (Negative) mg/dL Urine Ketones Neg (Negative) mg/dL Urine Blood Mod (Negative) Urine Nitrite Neg (Negative) Urine Bilirubin Neg (Negative) Urine Urobilinogen < 2.0 (<2.0) mg/dL Ur Leukocyte Esterase Lg (Negative) Urine WBC (Auto) > 182.0 H (0.0-6.0) /HPF Urine RBC (Auto) 7.0 (0.0-6.0) /HPF U Epithel Cells (Auto) 1.0 (0-13.0) /HPF Urine Bacteria (Auto) 1+ (Negative) /HPF Urine Mucus Few /HPF - Medical Decision Making 46-year-old obese -[place] female presents to the emergency room complaining of dysuria since yesterday. She states there is a smell to her urine she denies any nausea vomiting no fever no chills no abdominal pain or pelvic pain. She reports her last menstrual period was 06/10/2021 she is 4 para 3. She states that she has had a history of this before. Urinalysis sent Patient's urinalysis came positive for urinary tract infection patient be treated with Augmentin and to follow-up with her primary care provider in 5 to 10 days for repeat urine. Critical care attestation.: If time is entered above; I have spent that time in minutes in the direct care of this critically ill patient, excluding procedure time. ED Disposition Clinical Impression: UTI (urinary tract infection) Disposition: HOME / SELF CARE / HOMELESS Is pt being admited?: No Does the pt Need Aspirin: No Condition: Stable Instructions: Urinary Tract Infection, Adult, [id number] Additional Instructions: Urinalysis is positive for urinary tract infection. Like for you to complete your antibiotics as prescribed. It is very important to increase your water intake. Tylenol ibuprofen as needed for pain. Follow-up in the next 5 to 10 days with your primary care provider for repeat urine. Prescriptions: Amoxicillin/K Clav Tab [Augmentin 875 mg] 1 tab PO Q12HR 10 Days #20 tab Referrals: PRIMARY CARE [Primary Care Provider] - 3-5 Days [facility] [Provider Group] - 3-5 Days Time of Disposition: 09:53
[2021-06-24 09:34] LABS: Bacteria,Urine 1+ /HPF (Negative); Bilirubin,Urine NEG (Negative); Blood,Urine MOD (Negative); Color,Urine Yellow (Yellow); Mucus,Urine FEW /HPF; Urobilinogen,Urine < 2.0 mg/dL (<2.0)
[2021-06-24 09:40] LABS: WBC,Urine > 182.0 /HPF (0.0-6.0)
[2021-06-24 10:19] VITALS: BP 151/85
== END 2021-06-24 10:19 | disposition home or self-care (01) ==
LOC: ED 07:35
DX: N39.0 Urinary tract infection, site not specified (principal)
CPT/HCPCS: 81001; 99283

== ENCOUNTER 2021-06-25 03:09 | Emergency (ER) | payer OTHER ==
[2021-06-25 04:07] VITALS: BP 157/92
== END 2021-06-25 04:00 | disposition left against medical advice (07) ==
LOC: ED 03:09
DX: R11.10 Vomiting, unspecified (principal); Z53.21 Procedure and treatment not carried out due to patient leaving prior to being seen by health care provider